=== PATIENT | female | born 1960 | race Caucasian/White ===

== ENCOUNTER 2018-02-17 08:35 | Emergency (ER) | payer OTHER ==
[~2018-02-17] VITALS: Ht 162.6 cm; Wt 83.9 kg
[2018-02-17] MEDS ORDERED: COZAAR50 MG (09:07)
[2018-02-17] MEDS ORDERED: PRAVASTATIN SOD20 MG (09:07)
[2018-02-17] MEDS ORDERED: PROMETH-CODEIN 65 ML (09:08)
[2018-02-17] MEDS ORDERED: GUAIFEN-CODEINE10 ML (09:08)
== END 2018-02-17 16:01 | disposition home or self-care (01) ==
LOC: ER 08:35
DX: J22 Unspecified acute lower respiratory infection (principal)

== ENCOUNTER 2024-11-14 05:15 | Day surgery (SDC) | payer OTHER ==
[2024-11-06 11:12] LABS: BASO % 0.3 % (0.1-1.2); EOS # 0.07 (0.04-0.54); EOS % 0.7 % (0.7-7.0); HEMATOCRIT 39.6 % (34.1-44.9); LYMPH % 27.8 % (19.3-53.1); MEAN CORPUSCULAR HEMOGLOBIN 31.9 pg (25.6-32.2); MONO # 0.66 (0.24-0.82); MONO % 7.1 % (4.7-12.5); NEUT # 5.94 (1.56-6.13); NEUT % 63.7 % (34.0-71.1); PLATELET COUNT 333 K/uL (163-369); RED BLOOD COUNT 4.08 M/uL (3.93-5.22); RED CELL DISTRIBUTION WIDTH 14.2 % (11.6-14.4)
[2024-11-06 11:16] LABS: URINE APPEARANCE Turbid; URINE BILIRRUBIN Negative (NEGATIVE); URINE BLOOD Negative; URINE COLOR Yellow; URINE GLUCOSE Negative (NEGATIVE); URINE KETONE Negative (NEGATIVE); URINE LEUKOCYTE Negative; URINE NITRATE Negative; URINE PROTEIN Negative (NEGATIVE); URINE UROBILINOGEN 0.2 E.U./dl
[2024-11-06 11:17] LABS: URINE BACTERIA 846.8 uL (0.0-1933); URINE EPITHELIAL CELLS 15.1 uL (0.0-38.8); URINE RBC 52.7 uL (0.0-20.8); URINE WBC 3.6 uL (0.0-23.2)
[2024-11-06 11:48] LABS: INR < 0.93; PROTHROMBIN TIME 10.2 SECONDS (9.0-11.5)
[2024-11-06 12:07] LABS: ALBUMIN 3.7 gm/dL (3.4-5.0); BILIRUBIN TOTAL 0.3 mg/dL (0.3-1.2); CALCIUM 8.9 mg/dL (8.5-10.1); CREATININE SERUM 0.86 mg/dL (0.55-1.02); GFR 66.64; GLOBULINA 3.3 G/DL (2.4-3.5); POTASSIUM 4.24 mEq/L (3.5-5.1)
[2024-11-06 12:24] VITALS: BP 113/75
[~2024-11-14] VITALS: Ht 162.6 cm; Wt 76.2 kg
[~2024-11-14 05:15] MED LIST: ALDACTONE25 MG PO; ATACAND16 MG PO; COZAAR50 MG; GUAIFEN-CODEINE10 ML; MAGNESIUM250 MG PO; PRAVASTATIN SOD20 MG; PROMETH-CODEIN 65 ML; PROMETRIUM200 MG PO
[2024-11-14] MEDS ORDERED: TRAMADOL HCL50 MG PO (07:36)
[2024-11-14] MEDS ORDERED: MIRALAX17 GM PO (07:36)
[2024-11-14] MEDS ORDERED: TYLENOL ARTHRI650 MG PO (07:36)
[2024-11-14] MEDS ORDERED: KETO10TA2 PO (07:36)
[2024-11-14] MEDS ORDERED: CEFAZOLIN SODIUM 1,000 MG VIAL ONE (08:01)
[2024-11-14] MEDS ORDERED: BUPIVACAINE HCL/MPF 0.5% 30ML VIAL ONE (08:10)
[2024-11-14] MEDS ORDERED: MORPHINE SULFATE 4 MG/ML VIAL IV ONE (10:10)
== END 2024-11-14 12:25 | disposition home or self-care (01) ==
LOC: CIR.AMB 05:15
PROVIDERS: ATTEND Surgery
DX: K80.10 Calculus of gallbladder with chronic cholecystitis without obstruction (principal)